=== PATIENT | male | born 1950 | race Caucasian/White ===

== ENCOUNTER 2023-08-04 20:05 | Emergency (ER) | payer BC, MEDICARE, OTHER ==
[2023-08-04] MEDS: Sodium Chloride 0.9% 10 ML Syringe FLUSH PRN (21:05)
[2023-08-04 21:22] LABS: BASOPHILS ABSOLUTE AUTO 0.03 10^3/uL (0.00-0.10); BASOPHILS PERCENT AUTO 0.4 % (0.0-1.0); EOSINOPHILS ABSOLUTE AUTO 0.19 10^3/uL (0.10-0.30); EOSINOPHILS PERCENT AUTO 2.2 % (1.0-3.0); HEMATOCRIT 43.6 % (40.0-52.0); HEMOGLOBIN 15.6 g/dL (13.0-17.0); IMMATURE GRAN ABSOLUTE AUTO 0.01 10^3/uL (0.00-0.50); IMMATURE GRAN PERCENT AUTO 0.1 % (0.0-5.0); LYMPHOCYTES ABSOLUTE AUTO 1.64 10^3/uL (1.00-4.00); LYMPHOCYTES PERCENT AUTO 19.2 % (20.0-40.0); MEAN CORPUSCULAR HEMOGLOBIN 31.6 pg (27.0-31.0); MEAN CORPUSCULAR HGB CONC 35.8 g/dL (32.0-36.0); MEAN CORPUSCULAR VOLUME 88.4 fL (82.0-92.0); MEAN PLATELET VOLUME 8.9 fL (7.4-10.4); MONOCYTES ABSOLUTE AUTO 0.79 10^3/uL (0.10-0.80); MONOCYTES PERCENT AUTO 9.2 % (2.0-8.0); NEUTROPHILS ABSOLUTE AUTO 5.89 10^3/uL (2.50-7.00); NEUTROPHILS PERCENT AUTO 68.9 % (50.0-70.0); PLATELET COUNT,PLT 229 10^3/uL (150-400); RED BLOOD CELL COUNT 4.93 10^6/uL (4.50-6.00); RED CELL DISTRIBUTION WIDTH 11.7 % (11.5-14.5); WHITE BLOOD CELL COUNT,WBC 8.55 10^3/uL (5.00-10.00)
[2023-08-04 21:37] LABS: ALANINE AMINOTRANSFERASE,ALT 34 U/L (14-63); ALBUMIN 4.27 g/dL (3.40-5.00); ALKALINE PHOSPHATASE 102 U/L (46-116); AMYLASE 64 U/L (25-125); ANION GAP 14.4 mmol/L (5-15); ASPARTATE AMNIOTRANSFERASE,AST 24 U/L (15-37); BILIRUBIN TOTAL 0.5 mg/dL (0.2-1.0); BLOOD UREA NITROGEN,BUN 14 mg/dL (7-18); CARBON DIOXIDE,CO2 26.3 mmol/L (21.0-32.0); CHLORIDE,CL 101 mmol/L (98-107); CREATININE 0.97 mg/dL (0.51-1.17); GLUCOSE RANDOM 104 mg/dL (70-140); LIPASE 66 U/L (16-77); POTASSIUM,K 3.7 mmol/L (3.5-5.1); PROTEIN TOTAL,TP 7.5 g/dL (6.4-8.2); SODIUM,NA 138 mmol/L (136-145)
[2023-08-04 21:52] LABS: ESTIMATED GFR 82 mL/min (>=60)
[2023-08-04] MEDS: Sodium Chloride 0.9% 50 ML IV SCH (22:08)
[2023-08-04] MEDS: Iopamidol 755 Mg/ML 100 ML Bottle IV ONE (22:08)
[2023-08-04] MEDS ORDERED: Naloxone 0.4 MG/ML SDV IVPUSH PRN (22:09)
[2023-08-04] MEDS: HYDROmorphone 1 MG/ML Syringe IVPUSH ONE (22:10)
[2023-08-04 22:14] LABS: APPEARANCE,URINE SLIGHTLY CLOUDY (CLEAR); BILIRUBIN,URINE NEGATIVE (NEGATIVE); COLOR,URINE DARK YELLOW (YELLOW); GLUCOSE,URINE NEGATIVE (NEGATIVE); KETONES,URINE TRACE mg/dL (NEGATIVE); LEUKOCYTE ESTERASE,URINE NEGATIVE (NEGATIVE); NITRITE,URINE NEGATIVE (NEGATIVE); OCCULT BLOOD,URINE LARGE (NEGATIVE); PH,URINE 5.5 (5.0-9.0); PROTEIN,URINE TRACE mg/dL (NEGATIVE); UROBILINOGEN,URINE 0.2 E.U./dL (0.2-1.0)
[2023-08-04 22:23] LABS: BACTERIA,URINE RARE /HPF (NONE TO FEW); EPITHELIAL CELLS,URINE OCCASIONAL /LPF; RBC,URINE >100 /HPF (0-5); WBC,URINE 0-5 /HPF (0-5)
[2023-08-04] MEDS: Ondansetron 4 MG/2 ML SDV IVPUSH ONE (23:04)
[2023-08-04] MEDS: Ketorolac 30 MG/ML SDV IVPUSH ONE (23:14)
[2023-08-04] MEDS: Sodium Chloride 0.9% 1,000 ML IV ONE (23:18)
[2023-08-04] MEDS: Tamsulosin 0.4 MG Cap.ER PO ONE (23:19)
[2023-08-05] MEDS: Acetaminophen/HYDROcodone 325-5 MG Tab PO ONE (00:30)
== END 2023-08-05 00:41 | disposition home or self-care (01) ==
LOC: SUPCPDRO 20:05 → KA.ED 20:05
DX: N13.1 Hydronephrosis with ureteral stricture, not elsewhere classified (principal); N20.0 Calculus of kidney; R31.9 Hematuria, unspecified; I25.10 Atherosclerotic heart disease of native coronary artery without angina pectoris
CPT/HCPCS: 74177; 80053; 81001; 82150; 83690; 85025; 96361; 96374; 96375; 99284; 99284-25; A9270-GY; J1170; J1885; J2405; J3490; J7030; Q9967